=== PATIENT | male | born 1985 | race Caucasian/White ===

== ENCOUNTER 2017-08-30 13:45 | Inpatient (IN) ==
[2017-08-30] MEDS ORDERED: Sodium Chloride 0.9% 1,000 ML PRIMARY IV ONE ×2 (13:52→14:39)
[2017-08-30] MEDS ORDERED: ONDANSETRON 4 MG/2 ML VIAL IVP ONE (13:52)
--- NOTE | 2017-08-30 13:53 | PDOC ---
General Adult HPI - General Chief Complaint: Diabetic Complaint Stated Complaint: HIGH BLOOD SUGAR, SENT BY [facility] Date Seen by Provider: 08/30/17 Time Seen by Provider: 13:53 Source: POSITIVE: Patient, RN/MD Exam Limitations: POSITIVE: No limitations Nurse's Notes Reviewed & Considered: Yes - History of Present Illness Initial Comment: This is a well-developed, well-nourished, 32-year-old male, with high blood sugar. Patient with only diagnosed diabetes mellitus on Monday comes in today because he is having high blood sugars and abdominal pain along with a mild headache and blurry vision. Patient has had a recent weight loss of 30 pounds, increased thirst, increased urination, nausea along with the above noted symptoms. Started on 500 mg twice a day of metformin. He states his blood sugars on Monday with approximately 270, yesterday were in the 300 range, and today were greater than 600. He attended his primary care physician today who directed him here to the emergency department. Have you received a tetanus shot in the past 10 years?: Unknown Body Location Affected: REPORTS: Head, Abdomen Timing: REPORTS: Gradual Duration: Unknown Severity: Moderate Quality: REPORTS: "Pain" Context: REPORTS: None Modifying Factors: improves with: Nothing Associated Symptoms: Increased thirst, increased urination, 30 pound weight loss without attempting to diet. Recent Care Received: REPORTS: Recently Seen, Treated by MD Any Prior Injuries Related to Current Complaint?: No - Patient Home Medications Home Medications: Home Medications metformin 500 mg tablet 500 mg PO BID #30 tab 08/28/17 - Patient Allergies Allergies/Adverse Reactions: Allergies 3 Allergy/AdvReac Type Severity Reaction Status Date / Time No Known Allergies Allergy Verified 08/30/17 11:01 ROS - Limitations ROS Limitations: No Limitations Constitution: REPORTS: Denies Symptoms Cardiovascular: REPORTS: Denies Cardiac Symptoms Respiratory: REPORTS: Denies Resp Symptoms Neurological: REPORTS: Headache Gastrointestinal: REPORTS: Abdominal Pain, Nausea Endocrine: REPORTS: Elevated Glucose, Polydypsia, Polyuria Musculoskeletal: REPORTS: Denies MS Symptoms Genitourinary: REPORTS: Denies Symptoms Eyes: REPORTS: Denies Symptoms ENT: REPORTS: Denies Symptoms Skin: REPORTS: Denies Skin Symptoms Lympathic: REPORTS: Denies Lympathic Symptoms Immunologic: POSITIVE: Denies Symptoms Psychiatric: POSITIVE: Denies Psych Symptoms General Adult Exam - General Appearance General Appearance: POSITIVE: Alert, Cooperative, No Acute Distress, No Evidence of Trauma - HEENT HEENT: POSITIVE: Head Inspection Nml, Eyes Inspection Nml, Ears Inspection Nml, Nose Inspection Nml, Oral/Dental Inspect. Nml, Pharynx Inspect. Nml, PERRL, EOMI - Pupils Pupil Size: 3 mm: Bilateral - Neck Neck: POSITIVE: Normal Inspection, Thyroid Normal - Respiratory Respiratory: POSITIVE: No Respiratory Distress, Breath Sounds Normal, Chest Non- Tender - Cardiovascular Cardiovascular: POSITIVE: Regular Rate & Rhythm, No Murmur, No Gallop, PMI Normal Peripheral Pulses: Radial (L): 4+ - Abdomen Abdomen: Soft: (All Quadrants), Normal Bowel Sounds: (All Quadrants), No Splenomegaly: (All Quadrants), No Hepatomegaly: (All Quadrants), No Rebound: ( All Quadrants), No Palpable Pulse: (All Quadrants), No Palpabale Mass: (All Quadrants), No Distention: (All Quadrants), No Rigidity: (All Quadrants), Tenderness Noted: (All Quadrants), Guarding: (All Quadrants) - Back Back: POSITIVE: Normal Inspection - Skin Skin: POSITIVE: Normal Color, Warm, Dry, No Rash - Extremities Extremity: Non-Tender: (All Extremities), Normal ROM: (All Extremities), Normal Inspection: (All Extremities), Pelvis Stable: (All Extremities) - Neurological / Psychological Neurological: POSITIVE: Affect Apporpriate, Oriented X3, Motor Normal, Sensation Normal Procedures - Laceration/Wound Repair Did patient have a laceration repair: No General Adult Progress - Results Reviewed by me Xrays/CTs/US Reviewed by me: Yes Discussed with Radiologist: Yes Lab Results Reviewed by Me: Yes CBC and BMP: 08/30/17 14:10 08/30/17 14:10 - Patient's Progress Pain Medication Addressed: POSITIVE: Yes Re-Examine Time: 15:00 Status: POSITIVE: Improved MDM / ED Course: Patient was evaluated, an IV started, blood drawn and sent to the lab for studies, CT scan of his abdomen and pelvis were obtained. Findings: CT scan of the abdomen and pelvis shows no acute abnormalities. CBC shows white count of 4.09, hemoglobin of 15.7, hematocrit of 40.4, platelets are 259. Comprehensive metabolic panel shows glucose greater than 540, sodium of 129, potassium 4.4, chloride of 90, bicarbonate of 18, BUN of 12, creatinine 0.7, calcium 9.3, bilirubin of 1.0, AST of 23, ALT of 31, alkaline phosphatase of 116, total protein 6.9, albumin of 4.6. Magnesium normal at 1.7. TSH and T4 are normal. Hemoglobin A1c is elevated at 12.53. Lactic acid is 1.2, amylase of 72, lipase of 474, small amount of ketones. Urinalysis shows glucose greater than 500 with ketones of 80. Assessment: #1 new-onset diabetes mellitus with hyperglycemia. #2 pancreatitis. Plan: Insulin drip, normal saline with potassium replacement, nothing by mouth, admission. Antibiotics Given: No Quality Measure Initiative: CAP: POSITIVE: CXR or CT - Consult Consult (If Yes, Name of Consulting MD & Time Called): Yes (Dr. Ortega, 1520 hrs) Consulting MD will see pt:: POSITIVE: [facility] [place] Admit Counseled: POSITIVE: Patient, RE: Lab Results, RE: Radiology Results, RE: DX, RE : Need for F/U Patient Care Time - Estimated PCT Patient Care Time (In Minutes): 45 Vital Signs - Recent Vital Signs Vital Signs: Vital Signs (Last 8 hours) Temp Pulse Resp BP Pulse Ox 08/30/17 13:45 98.6 F 98 18 129/81 95 - VS Reviewed Vital Signs Reviewed: Yes Discharge Clinical Impression: Hyperglycemia, Hyperosmolar non-ketotic state in patient with type 2 diabetes mellitus, Pancreatitis Clinical Impression: (Ruled Out): Hyperosmolar nonketotic coma in diabetes Discharge Disposition: Admit to Inpatient Condition: Fair Date Decision to Admit to Inpatient: 08/30/17 Time Decision to Admit to Inpatient: 15:22
[2017-08-30] MEDS ORDERED: KETOROLAC 15 MG/1 ML VIAL IVP ONE (14:06)
[2017-08-30 14:24] LABS: BASOPHILS # (AUTO) 0.01 10*3/UL; BASOPHILS % (AUTO) 0.2 % (0-1); BILIRUBIN,URINE NEGATIVE (NEG); CLARITY,URINE CLEAR (CLEAR); COLOR,URINE YELLOW (Y); EOSINOPHILS # (AUTO) 0.03 10*3/UL; EOSINOPHILS % (AUTO) 0.7 % (0-8); GLUCOSE, URINE (UA) 500 mg/dL (NEG); Hematocrit [HCT] 40.4 % (42.0-52.0); Hemoglobin [HGB] 15.7 g/dL (14.0-18.0); LYMPHOCYTES # (AUTO) 1.63 10*3/uL; MEAN CORPUSCULAR HEMOGLOBIN 31.8 PG (27-31); MEAN CORPUSCULAR HGB CONC 38.9 g/dL (33-37); MEAN CORPUSCULAR VOLUME 81.9 FL (80-90); MEAN PLATELET VOLUME 9.1 FL (7.4-12.2); MONOCYTES # (AUTO) 0.25 10*3/UL (0.3-0.8); MONOCYTES % (AUTO) 6.1 % (5-15); NEUTROPHILS # (AUTO) 2.16 10*3/UL; NEUTROPHILS % (AUTO) 52.9 % (50-80); OCCULT BLOOD,URINE NEGATIVE (NEG); PROTEIN,URINE NEGATIVE (NEG); RED BLOOD COUNT 4.93 10^6/uL (4.70-6.10); UROBILINOGEN,URINE 0.2 EU/dL (0.2)
[2017-08-30 14:29] LABS: PLATELET MORPHOLOGY COMMENT NORMAL MORPHOLOGY (NORM); RBC MORPHOLOGY COMMENT NORMAL MORPHOLOGY (NORM); WBC MORPHOLOGY COMMENT NORMAL MORPHOLOGY (NORM)
[2017-08-30 14:31] LABS: URINE SAMPLE TYPE CLEAN CATCH URINE
[2017-08-30 14:36] LABS: LIPASE 474 IU/L (23-300)
[2017-08-30 14:41] LABS: BLOOD UREA NITROGEN 12 mg/dL (7-22); BUN/CREATININE RATIO 17.14 (6-20); SERUM ALBUMIN 4.6 g/dL (3.5-4.8)
[2017-08-30 14:53] LABS: HEMOGLOBIN A1C 12.53 % (4.2-6.0)
[2017-08-30] MEDS ORDERED: MORPHINE SULFATE 4 MG/1 ML IVP ONE (14:57)
[2017-08-30] MEDS ORDERED: DEXTROSE 50%-WATER SYRINGE 50 ML SYRINGE IVP PRN ×3 (15:08→15:40)
[2017-08-30] MEDS ORDERED: Glucagon Inj Vial 1 MG/ML VIAL IM PRN ×3 (15:08→15:40)
[2017-08-30] MEDS ORDERED: DEXTROSE 31 GM GEL PO PRN ×3 (15:08→15:40)
[2017-08-30] MEDS ORDERED: Insulin Regular Inj 100 UNIT in Sodium Chloride 0.9% 99 ML IV ONE ×2 (15:08→15:40)
[2017-08-30] MEDS ORDERED: ONDANSETRON 4 MG/2 ML VIAL IVP PRN (15:40)
[2017-08-30] MEDS ORDERED: Sodium Chloride 0.9% 1,000 ML PRIMARY IV SCH (15:40)
[2017-08-30] MEDS ORDERED: LIDOCAINE W/ SODIUM BICARB 0.5 ML SYR SUBD PRN (15:40)
[2017-08-30] MEDS ORDERED: Insulin Regular Inj 100 UNIT in Sodium Chloride 0.9% 99 ML IV SCH (15:40)
[2017-08-30] MEDS ORDERED: NORMAL SALINE 10 ML SYRINGE FLUSH IVP PRN (15:40)
--- NOTE | 2017-08-30 15:52 | DI ---
CT ABDOMEN SCAN WITH IV CONTRAST, 08/30/2017 2:06 PM : Clinical History: Epigastric pain. New onset of diabetes mellitus. Previous Exam: None at this facility. Scans are performed from the lower lung bases through the liver and kidneys with IV contrast. 75 ml o f Isovue 300 was injected IV. No oral or rectal contrast was ordered. The lung bases are clear. The liver is normal. The gallbladder is grossly normal. There is no abnorma lity of the spleen, pancreas, and adrenal glands. Both kidneys are normal in size, shape, position an d contour. There is no hydronephrosis or hydroureter. No renal or ureteral calculi are present. There are no abnormal retrocrural or periaortic nodes. No ascites is present. READING: Normal CT abdomen scan. CT PELVIS SCAN WITH IV CONTRAST, 08/30/2017 2:06 PM: Clinical History: See above. Previous Exam: None at this facility. Scans are performed from just superior to the umbilicus to the symphysis pubis with IV contrast. This is the same bolus of contrast used for the CT scans of the abdomen. Scans through the lower abdomen and pelvis show no masses or abnormal fluid collections. There is no adenopathy. The appendix is normal. The small bowel, terminal ileum, and ileocecal valve are normal. The colon is also normal. There are no hernias. READING: Normal CT scan of the pelvis.
[2017-08-30 15:59] LABS: AMPHETAMINE SCREEN NEGATIVE (NEG); CANNABINOID SCREEN,URINE NEGATIVE (NEG); COCAINE SCREEN NEGATIVE (NEG); METHADONE URINE SCREEN NEGATIVE (NEG); METHAMPHETAMINES SCREEN,URINE NEGATIVE (NEG); OPIATE SCREEN,URINE NEGATIVE (NEG); URINE SAMPLE TYPE CLEAN CATCH URINE; URINE SPECIFIC GRAVITY - MAN 1.039
[2017-08-30 16:06] LABS: VENOUS PH 7.37 (7.32-7.42)
--- NOTE | 2017-08-30 16:12 | PDOC ---
HPI - History of Present Illness History of Present Illness: Is a very nice 32-year-old gentleman who was just told the 3 days ago that he was diagnosed with diabetes was started on metformin today comes with some generalized malaise and was found to have a blood sugar of around 500 and elevated lipase. He is not a drinker and denies any chest pain occasional nausea Past Medical History Medical History: Diabetes newly diagnosed 2018 Tobacco Use: Never Smoker Do you dip or chew tobacco: Yes (4 CANS/WEEK DOWN FROM 7 CANS/WEEK) In the Past 12 Months, Have Used or Abuse Any of the Following Substance: None Medication / Allergies Home Medications: Home Medications 3 Medication Instructions Recorded Confirmed Type metformin 500 mg tablet 500 mg PO BID #30 tab 08/28/17 08/30/17 Rx Allergies/Adverse Reactions: Allergies 3 Allergy/AdvReac Type Severity Reaction Status Date / Time No Known Allergies Allergy Verified 08/30/17 11:01 Review of Systems - Review of Systems All Systems: Reviewed & No Additional Complaints Except as Stated - Respiratory Respiratory: DENIES: Negative System Review, Cough, Sputum, Dyspnea At Rest, Dyspnea with Exertion, Pleuritic Pain, Hemoptysis, Wheezing, Other, See HPI - Cardiovascular Cardiovascular: DENIES: Negative System Review, Chest Pain, Edema, Syncope, Palpitations, Orthopnea, Paroxysmal Nocturnal Dyspnea, Other, See HPI - Gastrointestinal Gastrointestinal / Abdominal: REPORTS: Nausea. DENIES: Vomiting, Diarrhea, Abdominal Pain Exam - Vitals Vital Signs: Vital Signs Temperature 98.6 F Temperature Source Temporal Artery Scan Pulse Rate [Pulse Oximeter] 98 Respiratory Rate 18 Blood Pressure [Left Arm] 129/81 Pulse Ox 95 Oxygen Delivery Method Room Air Height 5 ft 6 in Weight 145 lb - General General Appearance: No Acute Distress, Cooperative - Head Head Exam: Normal Inspection, Normocephalic, Atraumatic - Eye Eye Exam: POSITIVE: Normal Appearance, PERRL, EOMI, No Scleral Icterus - Neck Neck Exam: Normal Inspection, Full ROM, No Tenderness, No Lymphadenopathy, No Thyromegaly, JVP is not Raised - Respiratory Respiratory Exam: POSITIVE: Clear to Auscultation - Bilaterally, Breathing Non Labored, Normal To Percussion, Normal to Percussion and Palpation - Cardiovascular Cardiovascular Exam: POSITIVE: RRR, No Murmur, No Clicks, No Gallops, No Rubs, PMI Non-Displaced - GI/Abdominal GI/Abdominal Exam: POSITIVE: Normal Bowel Sounds, Non Tender, Non Distended, Soft, No Masses, No Hepatomegaly, No Splenomegaly, No Organomegaly - Extremities Extremities Exam: POSITIVE: Normal Inspection, Full ROM, Normal Capillary Refill , No Clubbing Present, No Edema Present, No Cyanosis Present, Negative Brandi's sign, Dosalis Pedis Pulses - Stong & Regular Results - Labs CBC and BMP: 08/30/17 14:10 08/30/17 14:10 Assessment and Plan - Patient Problems (1) Hyperglycemia Current Visit: Yes Status: Acute Code(s): R73.9 - Hyperglycemia, unspecified (2) Hyperosmolar non-ketotic state in patient with type 2 diabetes mellitus Current Visit: Yes Status: Acute Code(s): E11.01 - Type 2 diabetes mellitus with hyperosmolarity with coma (3) Pancreatitis Current Visit: Yes Status: Acute Code(s): K85.90 - Acute pancreatitis without necrosis or infection, unspecified (4) Diabetes mellitus Current Visit: No Status: Acute Code(s): E11.9 - Type 2 diabetes mellitus without complications - Assessment / Plan Additional Assessment/Plan Details: #1 hyperosmolar state with newly diagnosed diabetes unlikely DKA patient is not acidotic we'll start insulin drip plus normal saline and potassium replacement check CMP frequently he is in stable condition does not look the toxic or lethargic these feeling much better now that day he received 2 L of fluid already. I have discussed the case with the Dr. Leiva pulmonary critical care and Franki the nurse that will be taking care of him I suspect this will turn around quickly he will most likely be on insulin one is his discharge will follow-up with his primary care physician
[2017-08-30] MEDS: MORPHINE SULFATE 2 MG/1 ML IVP PRN ×2 (17:45→21:47)
[2017-08-30] MEDS: HEPARIN 5000 UNIT/1 ML SUBCUT SCH (17:46)
[2017-08-30] MEDS ORDERED: D5-1/2NS + 20mEq KCL 1,000 ML PRIMARY IV ONE (18:08)
[2017-08-30] MEDS: D5-1/2NS + 20mEq KCL 1,000 ML PRIMARY IV SCH (18:11)
[2017-08-30 19:39] LABS: CHOL/HDL RATIO 8.2 RATIO (0-4.0)
[2017-08-30 19:40] LABS: BLOOD UREA NITROGEN 12 mg/dL (7-22)
[2017-08-30] MEDS ORDERED: Magnesium Sulfate 4gm (Premix) 4 GM/100 ML BAG IV ONE (21:37)
[2017-08-30 23:56] LABS: BLOOD UREA NITROGEN 12 mg/dL (7-22)
[2017-08-31] MEDS: HEPARIN 5000 UNIT/1 ML SUBCUT SCH ×4 (00:04→23:39)
[2017-08-31] MEDS: D5-1/2NS + 20mEq KCL 1,000 ML PRIMARY IV SCH ×4 (00:04→23:39)
[2017-08-31] MEDS: MORPHINE SULFATE 2 MG/1 ML IVP PRN ×5 (03:12→19:43)
[2017-08-31 04:11] LABS: BLOOD UREA NITROGEN 11 mg/dL (7-22)
[2017-08-31 08:17] LABS: BLOOD UREA NITROGEN 10 mg/dL (7-22)
[2017-08-31] MEDS: Pantoprazole Inj 40 MG in Normal Saline Flush 10 ML IVP SCH (09:16)
[2017-08-31] MEDS ORDERED: Insulin Glargine SoloStar Inj 100 UNIT/ML INSULN.PEN SUBCUT ONE (10:26)
--- NOTE | 2017-08-31 12:05 | PDOC(PROG) ---
Interval History: Patient is doing a little better still has some left lower quadrant pain lipase numbers are improved no nausea no vomiting tolerating clear liquids Objective : Data - Labs CBC and BMP: 08/30/17 14:10 08/31/17 07:55 Objective : Exam - General General Appearance: Cooperative - Neck Neck Exam: Normal Inspection, Full ROM, No Tenderness - Respiratory Respiratory Exam: Clear to Auscultation - Bilaterally, Breathing Non Labored, Normal To Percussion, Normal to Percussion and Palpation - Cardiovascular Cardiovascular Exam: RRR, No Murmur, No Clicks, No Gallops, No Rubs, PMI Non- Displaced - GI/Abdominal GI/Abdominal Exam: Normal Bowel Sounds, Non Distended, Soft, No Masses, No Hepatomegaly, No Splenomegaly, No Organomegaly Additional GI/Abdominal Exam Details: Mild left lower quadrant pain no guarding - Extremities Extremities Exam: No Clubbing Present, No Edema Present, No Cyanosis Present Assessment and Plan - Patient Problems (1) Hyperglycemia Current Visit: Yes Status: Acute Code(s): R73.9 - Hyperglycemia, unspecified (2) Hyperosmolar non-ketotic state in patient with type 2 diabetes mellitus Current Visit: Yes Status: Acute Code(s): E11.01 - Type 2 diabetes mellitus with hyperosmolarity with coma (3) Pancreatitis Current Visit: Yes Status: Acute Code(s): K85.90 - Acute pancreatitis without necrosis or infection, unspecified (4) Diabetes mellitus Current Visit: No Status: Acute Code(s): E11.9 - Type 2 diabetes mellitus without complications - Assessment / Plan Additional Assessment/Plan Details: #1 DKA hyperosmolar state improved benign gap is closed we will give him 10 units of Lantus stop the drip 2 hours later will keep her clear liquids and advance diet when his abdominal pain and pancreatitis is resolved no acute findings on CT of the abdomen type I insulin antibodies were ordered at the request of the dietitian since he has a brother with type I diabetes #2 dehydration improved #3 pancreatitis most likely from uncontrolled diabetes and elevated sugars lipase improving we'll continue monitoring continue potassium replacement discussed with nursing and patient
[2017-08-31] MEDS ORDERED: Acetaminophen 1000mg Inj 1,000 MG/100 ML VIAL IV PRN (13:26)
[2017-08-31 17:12] LABS: BLOOD UREA NITROGEN 5 mg/dL (7-22); SERUM ALBUMIN 3.6 g/dL (3.5-4.8)
[2017-08-31] MEDS ORDERED: Insulin Lispro Flexpen 300 UNIT/3 ML INSULN.PEN SUBCUT ONE (20:09)
[2017-08-31] MEDS ORDERED: HYDROcodone-APAP 5 MG -325 MG TABLET PO ONE (20:09)
[2017-08-31] MEDS: Insulin Lispro Flexpen 300 UNIT/3 ML INSULN.PEN SUBCUT SCH (20:11)
[2017-08-31] MEDS: HYDROcodone-APAP 5 MG -325 MG TABLET PO PRN ×2 (20:38→22:50)
[2017-08-31] MEDS: KETOROLAC 15 MG/1 ML VIAL IVP PRN (21:08)
[2017-09-01] MEDS: HYDROcodone-APAP 5 MG -325 MG TABLET PO PRN ×2 (02:30→07:48)
[2017-09-01] MEDS: D5-1/2NS + 20mEq KCL 1,000 ML PRIMARY IV SCH (07:18)
[2017-09-01] MEDS: HEPARIN 5000 UNIT/1 ML SUBCUT SCH ×2 (07:48→17:28)
[2017-09-01] MEDS: Insulin Lispro Flexpen 300 UNIT/3 ML INSULN.PEN SUBCUT SCH ×6 (07:48→20:33)
[2017-09-01] MEDS: Pantoprazole Inj 40 MG in Normal Saline Flush 10 ML IVP SCH (09:34)
[2017-09-01] MEDS ORDERED: Magnesium Sulfate 2gm (Premix) 2 GM/50 ML BAG IV ONE (09:56)
[2017-09-01 09:57] LABS: BLOOD UREA NITROGEN 6 mg/dL (7-22); SERUM ALBUMIN 3.9 g/dL (3.5-4.8)
[2017-09-01] MEDS: KETOROLAC 15 MG/1 ML VIAL IVP PRN (11:08)
--- NOTE | 2017-09-01 11:38 | PDOC(PROG) ---
Interval History: Patient is feeling much better today he would like to eat a regular diet at this point not adjusted in the low carb. Abdominal pain is resolved Objective : Data - Labs CBC and BMP: 08/30/17 14:10 09/01/17 09:38 Objective : Exam - Respiratory Respiratory Exam: Clear to Auscultation - Bilaterally, Breathing Non Labored, Normal To Percussion, Normal to Percussion and Palpation - Cardiovascular Cardiovascular Exam: RRR, No Murmur, No Clicks, No Gallops, No Rubs, PMI Non- Displaced - GI/Abdominal GI/Abdominal Exam: Normal Bowel Sounds, Non Tender, Non Distended, Soft, No Masses, No Hepatomegaly, No Splenomegaly, No Organomegaly Assessment and Plan - Patient Problems (1) Hyperglycemia Current Visit: Yes Status: Acute Code(s): R73.9 - Hyperglycemia, unspecified (2) Hyperosmolar non-ketotic state in patient with type 2 diabetes mellitus Current Visit: Yes Status: Acute Code(s): E11.01 - Type 2 diabetes mellitus with hyperosmolarity with coma (3) Pancreatitis Current Visit: Yes Status: Acute Code(s): K85.90 - Acute pancreatitis without necrosis or infection, unspecified (4) Diabetes mellitus Current Visit: No Status: Acute Code(s): E11.9 - Type 2 diabetes mellitus without complications - Assessment / Plan Additional Assessment/Plan Details: #1 hyperosmolar state/DKA with anion gap acidosis resolved patient was given 10 units of insulin after strip was stopped today's morning sugars were 400 we will start 18 units of Lantus tonight and cover with Humalog before meals breakfast lunch and dinner 4 units this will make it easier for the patient to understand until he can have more information and maybe check his blood sugars and have a sliding scale coverage with Humalog he really wants to go home tomorrow morning and this might be the way to expedite things he has a very important trip on Monday he needs to go to [place]. Diabetes education and diet education was consult did and is talking to the patient #2 hypomagnesemia replaced 2 g IV #[address] scan no acute changes we'll slightly from the elevated sugar and triglycerides advance diet pain is resolved we'll DC from ICU status I discussed this case with nursing his and the patient on agreement
[2017-09-01] MEDS ORDERED: Glucagon Inj Vial 1 MG/ML VIAL IM PRN (11:48)
[2017-09-01] MEDS ORDERED: NORMAL SALINE 10 ML SYRINGE FLUSH IVP PRN (11:48)
[2017-09-01] MEDS ORDERED: LIDOCAINE W/ SODIUM BICARB 0.5 ML SYR SUBD PRN (11:48)
[2017-09-01] MEDS ORDERED: KETOROLAC 15 MG/1 ML VIAL IVP PRN (11:48)
[2017-09-01] MEDS ORDERED: Acetaminophen 1000mg Inj 1,000 MG/100 ML VIAL IV PRN (11:48)
[2017-09-01] MEDS ORDERED: ONDANSETRON 4 MG/2 ML VIAL IVP PRN (11:48)
[2017-09-01] MEDS ORDERED: DEXTROSE 50%-WATER SYRINGE 50 ML SYRINGE IVP PRN (11:48)
[2017-09-01] MEDS ORDERED: DEXTROSE 31 GM GEL PO PRN (11:48)
--- NOTE | 2017-09-01 18:49 | DI ---
EXAM: CT Head Without Intravenous Contrast CLINICAL HISTORY: ITS.REASON headache, blurry vision Physician Notes: Tech Comments: TECHNIQUE: Axial computed tomography images of the head/brain without intravenous contrast. COMPARISON: No relevant prior studies available. FINDINGS: Brain: No hemorrhage. No edema. Ventricles: No ventriculomegaly. Bones/joints: No acute fracture. Soft tissues: Unremarkable. Sinuses: No acute sinusitis. Mastoid air cells: No mastoid effusion. IMPRESSION: No acute intracranial process.
[2017-09-01] MEDS ORDERED: Insulin Glargine SoloStar Inj 100 UNIT/ML INSULN.PEN SUBCUT SCH (21:00)
[2017-09-01] MEDS ORDERED: HYDROmorphone 2 MG/1 ML ONE (22:52)
[2017-09-01] MEDS: HYDROmorphone 2 MG/1 ML IVP PRN (22:53)
[2017-09-02] MEDS: HEPARIN 5000 UNIT/1 ML SUBCUT SCH ×2 (00:22→07:52)
[2017-09-02] MEDS: HYDROmorphone 2 MG/1 ML IVP PRN ×2 (02:34→08:04)
[2017-09-02] MEDS ORDERED: Insulin Lispro Flexpen 300 UNIT/3 ML INSULN.PEN SUBCUT SCH (07:00)
[2017-09-02] MEDS: Insulin Lispro Flexpen 300 UNIT/3 ML INSULN.PEN SUBCUT SCH ×4 (07:53→11:25)
[2017-09-02 08:16] LABS: BLOOD UREA NITROGEN 14 mg/dL (7-22); BUN/CREATININE RATIO 23.33 (6-20); SERUM ALBUMIN 3.5 g/dL (3.5-4.8)
[2017-09-02] MEDS ORDERED: Pantoprazole Inj 40 MG in Normal Saline Flush 10 ML IVP SCH (09:00)
[2017-09-02 10:44] VITALS: BP 119/78; RESP 16; TEMP 97.4; O2SAT 95
--- NOTE | 2017-09-02 13:51 | DCSUMMARY ---
Hospitalization Summary Admit Date: 08/30/2017 Discharge Date: 09/02/17 Primary Diagnosis:: diabetes mellitus type I, poorly controlled Hospital Course: This very pleasant 32-year-old male that came in with blood sugars in the high 500s. He was not truly and an anion gap acidosis, but it looked consistent with a nonketotic hyperosmolar state. He was admitted, placed on insulin, and his blood sugars corrected. He was placed on insulin, including a regimen of Lantus and lispro. He tolerated this well. He had diabetes education. Prior to discharge, we did discuss headaches as well. The patient has had some frequent headaches to the hospital stay and I think it's related to the high blood sugars and possible increase in sugar and the vitreous space. He just had an eye appointment and contacts and I suspect that this is also the cause of his headaches. He is really hopeful for narcotics, but I told him that due to the addictive potentials of this, risk of rebound headaches, and recommend infrequent use of Tylenol and Motrin and to see how these headaches improve with the adjustment in blood sugars as well as repeat eye examination which I recommended. I also am quite worried about narcotics in someone this young due to increased respiratory distress issues as well as potential harm from them even in the short-term. His head CT scan was negative. I advised on his discharge that should he need further imaging this can be discussed with his primary care physician. Today, he has no completes of chest pain, shortness breath, nausea or vomiting. Assessment and Plan: 1. As per discharge assessments noted 2. Disposition: Patient is discharged home. 3. Condition on discharge, stable and improved. 4. Diet: Diabetic diet 5. Activities: resume normal activities, and may return to work. 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 6. Follow-Up: 1. Dr. Roblero next week 2. Continuing diabetes education 7. Medications at the Time of Discharge: Home Medications 3 Medication Instructions Recorded Confirmed Type Insulin Glargine SoloStar Inj 20 unit SUBCUT BEDTIME #1 09/02/17 Rx [Lantus SoloStar Inj] insuln.pen Insulin Lispro Flexpen Inj 6 unit SUBCUT AC #1 insuln.pen 09/02/17 Rx [HumaLOG Flexpen Inj] 8. Time, care, counseling and coordination of care for this discharge is greater than 30 minutes. Exam - Vitals Vital Signs: Vital Signs Temperature 97.4 F Temperature Source Temporal Artery Scan Pulse Rate [Pulse Oximeter] 80 Pulse Rate 71 Respiratory Rate 16 Blood Pressure [Right Arm] 119/78 Blood Pressure [Left Arm] 107/74 Pulse Ox 95 Oxygen Delivery Method Room Air Height 5 ft 6 in Weight 146 lb 14.4 oz - General General Appearance: No Acute Distress, Cooperative - Head Head Exam: Atraumatic - Eye Eye Exam: POSITIVE: No Scleral Icterus - ENT ENT Exam: POSITIVE: Mucous Membranes Moist - Respiratory Respiratory Exam: POSITIVE: Clear to Auscultation - Bilaterally, Breathing Non Labored - Cardiovascular Cardiovascular Exam: POSITIVE: RRR, No Murmur, No Clicks, No Gallops, No Rubs, No JVD - Neurological Neurological Exam: POSITIVE: Alert, Oriented x 3, Normal Gait, No Facial Droop, Speech Intact / Clear, Moves All Extremities Equally Data Peritnent Studies: 09/02/17 09/02/17 04:17 04:17 Sodium 135 Potassium 3.7 L Chloride 100 Carbon Dioxide 22 L Anion Gap 13 BUN 14 Creatinine 0.6 L BUN/Creatinine Ratio 23.33 H Glucose 240 H Calculated Osmolality 288.0 Calcium 8.8 Total Bilirubin 0.4 AST 48 ALT 32 Alkaline Phosphatase 74 Total Protein 5.6 L Albumin 3.5 Globulin 2.1 L Albumin/Globulin Ratio 1.60 Lipase 210 Patient Problems - Patient Problem List (1) Headache Current Visit: Yes Status: Acute Code(s): R51 - Headache Qualifiers: Headache type: unspecified Headache chronicity pattern: unspecified pattern Intractability: not intractable Qualified Code(s): R51 - Headache Category: Medical (2) Diabetes mellitus Current Visit: Yes Status: Acute Code(s): E11.9 - Type 2 diabetes mellitus without complications Qualifiers: Diabetes mellitus type: type 1 Diabetes mellitus complication status: without complication Qualified Code(s): E10.9 - Type 1 diabetes mellitus without complications Category: Medical
[2017-09-05 13:55] LABS: GAD65 Ab Assay 0.17 nmol/L (<= 0.02)
[2017-09-07 08:52] LABS: Islet Antigen 2 Ab 0.08 nmol/L (<=0.02)
== END 2017-09-02 14:15 | disposition home or self-care (01) | DRG 637 ==
LOC: ER 13:45 → ICU 16:30 → MED/SURG 09-01 11:50
PROVIDERS: ADMIT Internal Medicine; ATTEND Internal Medicine